=== PATIENT | male | born 1995 | race Caucasian/White ===

== ENCOUNTER → 2017-07-20 | Day surgery (SDC) | payer OTHER ==
[~2017-07-20] VITALS: Ht 177.8 cm; Wt 117.9 kg
[~2017-07-20] MED LIST: GLUCAGON EMERGENCY 1 MG/KIT IV ONE; LACTATED RINGERS 1,000 ML IV ONE; LACTATED RINGERS 1,000 ML IV PRN; LIDOCAINE PF 2% 5 ML (XYLOCAINE) VIAL ONE; MIDAZOLAM 2 MG/2 ML (VERSED) VIAL ONE; ONDANSETRON 4 MG/2 ML (SDV) Z0FRAN IVP ONE; PANT40TA2 PO; SEVOFLURANE (ULTANE) 15 ML INHAL SOLN ONE; proPOfol 200 MG/20 ML (DIPRIVAN) VIAL IV ONE
--- OUTSIDE RECORDS SUMMARY | 2017-07-20 20:19 | XMS REPORT | Continuity of Care Document ---
Author Author [facility] Organization [facility] Address Unknown Phone Unavailable Allergies There is no data. Medications There is no data. Problems There is no data. Procedures There is no data. Results Test Result Range G-6-PD, Quant, Blood and RBC - 12/09/16 15:45 RBC 4.99 x10E6/uL 4.14-5.80 G-6-PD, Quant 282 U/10E12 RBC 146-376 Encounters ACCT No. Visit Date/Time Discharge Status Pt. Type Provider Facility Loc./Unit Complaint [id number] 02/18/2017 10:49:24 02/18/2017 23:59:59 CLS Outpatient Yvonne Vieira [id number] 12/11/2016 18:06:00 Document Registration
--- NOTE | 2017-07-20 20:25 | ED GI ---
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 He was eating steak 30 minutes prior to arrival. He does not report any recurrent heartburn and he's never had this happen before. He's been unable to swallow any water. Timing/Duration: 1/2 Hour Severity/Quality: Moderate Activities at Onset: None Allergies and Home Medications Allergies Coded Allergies: No Known Drug Allergies (Unverified , 07/20/17) Home Medications Pantoprazole Sodium 40 Mg Tablet.dr, 40 MG PO DAILY Prescribed by: ESTER NUNO on 07/20/17 2890 Patient Home Medication List Home Medication List Reviewed: Yes Review of Systems Constitutional: see HPI EENTM: No Symptoms Reported Respiratory: No Symptoms Reported Cardiovascular: No Symptoms Reported Gastrointestinal: See HPI Genitourinary: No Symptoms Reported Musculoskeletal: no symptoms reported Skin: no symptoms reported Psychiatric/Neurological: No Symptoms Reported Past Ujlmfgu-Gsjvak-Vlhfcx Hx Patient Social History Alcohol Use: Denies Use Recreational Drug Use: No Smoking Status: Never a Smoker Recent Foreign Travel: No Contact w/Someone Who Travel: No Recent Infectious Disease Expo: No Past Medical History Surgeries: Yes Adenoidectomy, Tonsillectomy Respiratory: No Cardiac: No Neurological: No Genitourinary: No Gastrointestinal: No Musculoskeletal: No Endocrine: No HEENT: No Cancer: No Psychosocial: No Integumentary: No Blood Disorders: No Physical Exam Vital Signs Vital Signs - First Documented 07/20/17 20:18 Temp 98.2 Pulse 100 Resp 18 B/P (MAP) 138/88 (105) Pulse Ox 99 Capillary Refill : Less Than 3 Seconds General Appearance: WD/WN, no apparent distress HEENT: PERRL/EOMI, normal ENT inspection Neck: non-tender, full range of motion Respiratory: no respiratory distress, no accessory muscle use Cardiovascular: regular rate, rhythm, no murmur Gastrointestinal: normal bowel sounds, non tender, soft Extremities: normal range of motion, non-tender (This) Neurologic/Psychiatric: alert, normal mood/affect, oriented x 3 Skin: normal color, warm/dry Exam Comments I did give him a glass of water to drink. He took 2 sips and then quickly regurgitated this. He would like to try medications before undergoing EGD. We will try glucagon premedicating with Zofran. Progress/Results/Core Measures My Orders Orders - ESTER NUNO APRN Ondansetron Injection (Zofran Injectio (07/20/17 20:30) Glucagon Emergency Kit (Glucagon Emergen (07/20/17 20:30) Medications Given in ED Vital Signs/I&O 07/20/17 20:18 Temp 98.2 Pulse 100 Resp 18 B/P (MAP) 138/88 (105) Pulse Ox 99 Blood Pressure Mean: 105 Departure Communication (Admissions) 2047- patient thought that briefly he had passed the food bolus however he attempted to drink some water and quickly regurgitated this. I did notify Dr. Mcpherson who will take the patient to endoscopy. Impression Primary Impression: Food impaction of esophagus Disposition: HOME, SELF-CARE Condition: Stable Departure-Patient Inst. Decision time for Depature: 21:55 Referrals: NO,LOCAL PHYSICIAN (PCP) Primary Care Physician DARLEEN MCPHERSON DO Patient Instructions: NO INSTRUCTIONS GIVEN Add. Discharge Instructions: All discharge instructions reviewed with patient and/or family. Voiced understanding. Scripts Pantoprazole Sodium (Protonix) 40 Mg Tablet. 40 MG PO DAILY, #14 TAB Prov: ESTER NUNO APRN 07/20/17 ESTER NUNO APRN Jul 20, 2017 20:24
--- NOTE | 2017-07-20 21:29 | History & Physical-Surgical ---
History of Present Illness History of Present Illness Reason for visit/HPI CC Steak stuck in esophagus. seen and evaluated in ED. Patient is a 22 year old male who was eating steak prior to arrival when first bite got stuck in the esophagus. Would not go down. He has been having nausea and emesis of any liquids he would try to put down. Unable to swallow secretions. Tried glucagon with out success. Nothing making better and nothing making worse. Moderated discomfort. Will have occasional reflux prior treated with Tums, but never had anything get stuck. Denies fever sweats chills shortness of breath or chest pain. Date of Admission T Date Seen by Provider: Jul 20, 2017 Time Seen by Provider: 21:29 I consulted on this patient on 07/20/17 21:20 Attending Physician Admitting Physician No,Local Physician Consult Allergies and Home Medications Allergies Coded Allergies: No Known Drug Allergies (Unverified , 07/20/17) Patient Home Medication List Home Medication List Reviewed: Yes Past Qpslapg-Zruwhh-Moaoho Hx Patient Social History Alcohol Use: Denies Use Recreational Drug Use: No Smoking Status: Never a Smoker Recent Foreign Travel: No Contact w/Someone Who Travel: No Recent Infectious Disease Expo: No Surgeries History of Surgeries: Yes Surgeries: Adenoidectomy, Tonsillectomy Respiratory History of Respiratory Disorde: No Cardiovascular History of Cardiac Disorders: No Neurological History of Neurological Disord: No Genitourinary History of Genitourinary Disor: No Gastrointestinal History of Gastrointestinal Di: No Musculoskeletal History of Musculoskeletal Dis: No Endocrine History of Endocrine Disorders: No HEENT History of HEENT Disorders: No Cancer History of Cancer: No Psychosocial History of Psychiatric Problem: No Integumentary History of Skin or Integumenta: No Blood Transfusions History of Blood Disorders: No Family Medical History Significant Family History: No Pertinent Family Hx Constitutional: no symptoms reported EENTM: no symptoms reported Cardiovascular: no symptoms reported Gastrointestinal: see HPI, nausea, vomiting Genitourinary: no symptoms reported Musculoskeletal: no symptoms reported Skin: no symptoms reported Psychiatric/Neurological: No Symptoms Reported Physical Exam Vital Signs Vital Signs - First Documented 07/20/17 20:18 Temp 98.2 Pulse 100 Resp 18 B/P (MAP) 138/88 (105) Pulse Ox 99 Capillary Refill : Less Than 3 Seconds General Appearance: Mild Distress HEENT: PERRL/EOMI Neck: Normal Inspection, Non Tender Respiratory: No Accessory Muscle Use, No Respiratory Distress Cardiovascular: Regular Rate, Rhythm Gastrointestinal: Non Tender, Soft Rectal: Deferred Back: Normal Inspection Extremity: Normal Capillary Refill, Normal Inspection, Non Tender Neurologic/Psychiatric: Alert, Oriented x3, No Motor/Sensory Deficits, Normal Mood/Affect, 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 Patient with esophageal obstruction secondary to food bolus. Admission Status: Other (Outpt Proc) Assessment/Plan esophageal obstruction secondary to food bolus discussed risks and benefits of EGD all other indicated procedures patient understands and wishes to proceed to OR for procedure. DARLEEN FUNK DO Jul 20, 2017 21:29
--- OUTSIDE RECORDS SUMMARY | 2017-07-20 21:40 | XMS REPORT | Continuity of Care Document ---
Author Author [facility] Organization [facility] Address Unknown Phone Unavailable Allergies There is no data. Medications There is no data. Problems There is no data. Procedures There is no data. Results Test Result Range G-6-PD, Quant, Blood and RBC - 12/09/16 15:45 RBC 4.99 x10E6/uL 4.14-5.80 G-6-PD, Quant 282 U/10E12 RBC 146-376 Encounters ACCT No. Visit Date/Time Discharge Status Pt. Type Provider Facility Loc./Unit Complaint [id number] 02/18/2017 10:49:24 02/18/2017 23:59:59 CLS Outpatient Yvonne Vieira [id number] 12/11/2016 18:06:00 Document Registration
--- NOTE | 2017-07-20 22:26 | Progress Note-Post Operative ---
Post-Operative Progess Note Surgeon (s)/Vp Analysis (s) Surgeon DARLEEN FUNK DO Vp Analysis: na Pre-Operative Diagnosis esophageal obstruction secondary food bolus Post-Operative Diagnosis same and gastric polyp Procedure & Operative Findings Date of Procedure 07/20/17 Procedure Performed/Findings egd wtih removal food bolus Anesthesia Type general Estimated Blood Loss Estimated blood loss (mL): none Specimens/Packing Specimens Removed na DARLEEN FUNK DO Jul 20, 2017 22:26
--- NOTE | 2017-07-20 22:29 | Discharge Inst-Simple/Standard ---
Discharge Inst-Standard Patient Instructions/Follow Up Plan of Care/Instructions/FU: 2 Weeks follow up with Dr. Mcpherson or your primary care doctor. You need to have follow up EGD within 3 months to re-evaluate. Activity as Tolerated: Yes Discharge Diet: Liquid Diet (then slowly advance as tolerates.) Other Inst to Patient Symptoms to Report: Appetite Changes, Extremity Discoloration, Numbness/Tingling, Swelling Increased , Bleeding Excessive, Eyesight Changes, Pain Increased, Urine Color Change, Constipation(Persistent), Fever over 101 degree F, Pain/Pressure in chest, Urinating Difficulty, Cough Up/Vomit Blood, Heart Beat Irreg/Pounding, Pain/ Pressure in jaw, Vaginal Bleeding Increase, Cramps in feet or legs, Lightheadedness, Pain/Pressure in shoulder, Diarrhea(Persistent), Memory Changes Suddenly, Questions/Concerns, Weight gain consecutive days, Dizziness/ Fainting, Nausea/Vomiting, Shortness of Breath, Weight gain over 2 pounds If questions or concerns contact your physician Or seek help at emergency department. DARLEEN MCPHERSON DO Jul 20, 2017 22:29
[2017-07-21 00:13] VITALS: BP 144/80
--- NOTE | 2017-07-21 03:15 | OPERATIVE REPORT ---
DATE OF SERVICE: 07/20/2017 PREOPERATIVE DIAGNOSIS: Esophageal obstruction secondary to food bolus. POSTOPERATIVE DIAGNOSES: Esophageal obstruction secondary to food bolus and gastric polyp. PROCEDURE: EGD with removal of food bolus. SURGEON: Darleen Mcpherson DO. ANESTHESIA: General. ESTIMATED BLOOD LOSS: None. COMPLICATIONS: None. INDICATIONS: The patient is a 22-year-old male who was eating a steak that had caused esophageal obstruction. The patient is vomiting any liquids to get down to get the obstruction to go down. The patient has tried Glucagon without any success. The patient has discussed risks and benefits of EGD. He understands and wishes to proceed with procedure. Consent was on chart. DESCRIPTION OF PROCEDURE: The patient was taken to the operating suite, intubated with general anesthesia. Timeout was performed. The scope was inserted in the mouth down the esophagus; there was a fair amount of liquid proximal to the obstruction. This was suctioned. The food bolus was identified. A snare was used to remove the food bolus. It came out in multiple pieces. Once completely removed, the scope was inserted down the esophagus down to the stomach and into the duodenum. There were no polyps, mass or ulcerations visualized within the duodenum. Scope was then slowly retracted back into the stomach and it was further insufflated and suctioned. There were no erythematous changes. There was a small polyp along the greater curvature, no ulcerations. Scope was retroflexed noting no hiatal hernia or other pathology. Scope was returned to its normal position, slowly withdrawn to the distal esophagus. There are no polyps, masses or ulcerations visualized. No strictures noted. In the esophagus, scope was slowly retracted back to completely remove. The patient tolerated procedure well without any complications, taken to recovery room in stable condition. RECOMMENDATIONS: The patient Protonix, which was prescribed by Manny Jones. The patient will follow up with his primary care physician or myself in 2 [place]. The patient is recommended to have repeat EGD within 3 months to reevaluate the esophagus and also gastric polyp. Job ID: [id number] DocumentID: [id number] Dictated Date: 07/20/2017 22:34:35 Ice Carver Date: 07/21/2017 03:15:05 Dictated By: DARLEEN MCPHERSON DO
== END | disposition home or self-care (01) ==
LOC: ER 20:16 → ENDO 21:30
PROVIDERS: ATTEND Surgery
DX: T18.120A Food in esophagus causing compression of trachea, initial encounter (principal); K31.7 Polyp of stomach and duodenum
CPT/HCPCS: 96374; 96375